=== PATIENT | female | born 1980 | race Hispanic/Latino ===

== ENCOUNTER 2020-03-15 07:46 | Outpatient (CLI) | payer MEDICARE, OTHER ==
[2020-03-15 14:29] LABS: Hemoglobin 13.5 g/dL (12.0-16.0); Mean Corpuscular HGB CONC 32.9 g/dL (32.0-36.0); Mean Corpuscular Hemoglobin 29.1 pg (27.0-31.0); Mean Corpuscular Volume 88.2 fL (78.0-98.0); Mean Platelet Volume 9.3 fL (7.4-10.4); Platelet Count 241 thou/uL (130-400); Red Blood Cell (RBC) Count 4.65 mill/uL (4.20-5.40); White Blood Cell (WBC) Count 12.7 thou/uL (4.8-10.8)
[2020-03-15 14:30] LABS: INR-International Normal Ratio 1.1; PTT 27.4 sec (22.9-36.1); Prothrombin Time 13.7 sec (12.0-14.7)
[2020-03-16 14:55] LABS: SARS-CoV-2 MS2 Positive; SARS-CoV-2 N Gene Negative; SARS-CoV-2 S Gene Negative; SARS-CoV-2 by NAA Not Detected (NotDetected); SARS-CoV-2 orf1ab Negative
== END 2020-03-15 07:47 | disposition home or self-care (01) ==
LOC: LABBT 07:46
PROVIDERS: ATTEND Neurological Surgery
DX: Z01.812 Encounter for preprocedural laboratory examination (principal); Z20.828 Contact with and (suspected) exposure to other viral communicable diseases; M50.023 Cervical disc disorder at C6-C7 level with myelopathy
CPT/HCPCS: 85027; 85610; 85730; U0003; 87635

== ENCOUNTER 2020-03-18 10:29 | Day surgery (SDC) | payer MEDICARE, MEDICAID ==
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
[~2020-03-18 10:29] MED LIST: Dexamethasone 20 MG/5 ML VIAL ONE; Glycopyrrolate 0.2 MG/ML 5 ML SYRINGE ONE; Lidocaine 1% PF 5 ML VIAL ONE; Ondansetron PF 4 MG/2 ML Vial ONE; PHENYLEPHRINE-NS 100 MCG/ML 10 ML SYRINGE ONE; PROPOFOL 200 MG/20 ML VIAL ONE; Rocuronium Bromide 10 MG/ML (10ML VIAL) ONE
[2020-03-18 11:41] LABS: Anion Gap 13 mmol/L (10-20); BUN (Urea Nitrogen) 14 mg/dL (7.0-18.7); Calc. Creatinine Clearance 0 mL/min (70-130); Calcium 9.3 mg/dL (7.8-10.44); Carbon Dioxide 25 mmol/L (22-29); Chloride 103 mmol/L (98-107); Estimated GFR-MDRD 84; Glucose 300 mg/dL (70-105); Potassium 4.4 mmol/L (3.5-5.1); Sodium 137 mmol/L (136-145)
[2020-03-18] MEDS ORDERED: Insulin Regular 300 UNITS/3 ML VIAL ONE (11:58)
[2020-03-18] MEDS ORDERED: Thrombin 5000 UNITS/5 ML VIAL ONE (11:58)
[2020-03-18] MEDS ORDERED: Fentanyl 100 MCG/2 ML VIAL ONE ×4 (12:22→16:32)
[2020-03-18] MEDS ORDERED: Midazolam HCl 2 mg/2 ml Vial ONE (12:27)
[2020-03-18] MEDS ORDERED: HYDROcodone/Acetaminophen 5/325 mg Tablet ONE (16:42)
[2020-03-18] MEDS ORDERED: Morphine 2 MG/ML VIAL ONE (18:08)
--- NOTE | 2020-03-19 09:11 | OP ---
DATE OF PROCEDURE: 03/18/2020 DATA OPERATIONS DIRECTOR: Colby Mcfadden PA-C PREOPERATIVE INDICATION: Treat pain and prevent neurological deterioration. PREOPERATIVE DIAGNOSES: Cervical intervertebral disk disease at C6-C7 with cord compression, early myelopathy, and radicular irritation. POSTOPERATIVE DIAGNOSES: Cervical intervertebral disk disease at C6-C7 with cord compression, early myelopathy, and radicular irritation. PROCEDURES PERFORMED: 1. Anterior cervical diskectomy, C6-C7. 2. Intervertebral arthrodesis, C6-C7. 3. Placement of intervertebral biomechanical device, C6-C7 (separate from plate). 4. Anterior cervical plating, C6-C7 (separate from interbody device). 5. Local morselized autograft, morselized allograft. 6. Operating microscope. PREOPERATIVE MEDICATIONS: Ancef 2 g IV. DRAIN NUMBER: Zero. DRAIN TYPE: None. DESCRIPTION OF PROCEDURE: The patient was brought to the operating room. General endotracheal anesthesia was induced. The patient's body habitus made positioning extremely difficult given her large skin folds behind her shoulders. We used a lateral fluoro radiograph to help us plan our incision. The right side of the neck was sterilely prepped and draped. We opened with a 10 blade knife and we controlled bleeding with bipolar cautery. We dissected sharply to the platysma. We cut this muscle in line with our incision. We continued a very difficult dissection given the large neck diameter all the way down to the prevertebral space. We moved medial to the sternocleidomastoid and lateral to the trachea and esophagus. We had to place a marker at C3-C4 and took a lateral fluoro radiograph. We counted down three interspaces from there and identified the C6-C7 interspace. We then elevated the longus colli muscles off the anterior surface of C6 and C7, and carefully placed a very long self-retaining retractor beneath them. We placed distraction pins at C6 and C7, and distracted across the intervening interspace. We incised the interspace with a 15 blade knife and we removed disk contents using curettes and rongeurs. The operative microscope was brought into the field. Under microscopic magnification and using microsurgical techniques, along with long microsurgical instruments, we carefully removed the remainder of the intervertebral disk. We accessed the ventral epidural space with a micro curette. We removed posterior longitudinal ligament and posterior osteophytes across the entire interspace from one neural foramen all the way to the other. Large ventral epidural veins were encountered over in the corners, and these were managed with very gentle bipolar cautery and small pledgets of Gelfoam with thrombin. We prepared the endplates for grafting with curettes and measured the height of the interspace to 8 mm. This was done with a bone rasp. We brought an 8 mm PEEK intervertebral graft into the field. With the osteophytes removed during our decompression, we removed soft tissue, and then we morcellized the bone and added it into demineralized bone matrix to form our fusion substrate. The substrate was packed in the center of the PEEK device and that device was advanced into the interspace under radiographic guidance to the appropriate depth. Device was separate from the plate. We removed the operative microscope and took out the distraction pins. A 16-mm anterior cervical plate was brought into the field. We drilled weight loss [facility] manager holes through the plate into the vertebral bodies and affixed the plate using 16 mm screws. Variable angle screws were used at C6 and fixed angle screws at C7. We engaged the locking mechanism over each of the 4 screws. AP and lateral fluoro radiographs confirmed adequate positioning of our instrumentation. We irrigated copiously with bacitracin irrigation. The dissection, the diskectomy, the placement of instrumentation were all severely complicated by the body habitus, which made the case much longer than average. We closed the wound in anatomical layers and we applied a sterile dressing. This was a clean case, no contamination. Job ID: [id number]
== END 2020-03-18 18:45 | disposition home or self-care (01) ==
LOC: SDC 10:29
PROVIDERS: ATTEND Neurological Surgery
PROC: 0RG10A0 Fusion of Cervical Vertebral Joint with Interbody Fusion Device, Anterior Approach, Anterior Column, Open Approach (ICD-10-PCS; principal; 2020-03-18)
PROC: 0RT30ZZ Resection of Cervical Vertebral Disc, Open Approach (ICD-10-PCS; 2020-03-18)
DX: M50.023 Cervical disc disorder at C6-C7 level with myelopathy (principal); F41.9 Anxiety disorder, unspecified; F31.9 Bipolar disorder, unspecified; E11.9 Type 2 diabetes mellitus without complications; G40.909 Epilepsy, unspecified, not intractable, without status epilepticus; I11.9 Hypertensive heart disease without heart failure; E78.00 Pure hypercholesterolemia, unspecified; Z79.4 Long term (current) use of insulin; Z79.899 Other long term (current) drug therapy; Z88.2 Allergy status to sulfonamides; Z88.6 Allergy status to analgesic agent; Z88.8 Allergy status to other drugs, medicaments and biological substances
CPT/HCPCS: 20930; 20936; 22551; 22853; 76000; 80048; 82962; J2270; 36415; 36416; C1713; C1776; J0690; J1100; J1815; J2250; J2405; J2704; J3010; J3490

== ENCOUNTER 2022-03-21 13:00 | Outpatient (CLI) | payer MEDICARE, MEDICAID | END 2022-03-21 13:01 | disposition home or self-care (01) | LOC: SCSMRI 13:00 | PROVIDERS: ATTEND Neurological Surgery | DX: M43.16 Spondylolisthesis, lumbar region (principal); M47.816 Spondylosis without myelopathy or radiculopathy, lumbar region; M48.061 Spinal stenosis, lumbar region without neurogenic claudication; M48.07 Spinal stenosis, lumbosacral region; M51.36 Other intervertebral disc degeneration, lumbar region | CPT/HCPCS: 72148 ==

== ENCOUNTER 2022-04-27 13:28 | Outpatient (CLI) | payer MEDICARE, MEDICAID ==
[2022-04-27 14:51] LABS: Hemoglobin 12.9 g/dL (12.0-15.5); Mean Corpuscular HGB CONC 34.3 g/dL (32.0-36.0); Mean Corpuscular Volume 90.4 fl (81.6-98.3); Mean Platelet Volume 11.5 fl (7.4-10.4); Platelet Count 307 10x3/uL (150-450); RBC Distribution Width 12.2 % (11.5-14.5); Red Blood Cell (RBC) Count 4.16 10x6/uL (3.90-5.03); White Blood Cell (WBC) Count 10.6 10x3/uL (3.5-10.5)
[2022-04-27 15:15] LABS: Anion Gap 13 mmol/L (10-20); BUN (Urea Nitrogen) 18 mg/dL (7.0-18.7); Calc. Creatinine Clearance 0 mL/min (70-130); Calcium 9.5 mg/dL (7.8-10.44); Carbon Dioxide 28 mmol/L (22-29); Chloride 105 mmol/L (98-107); Estimated GFR 89; Glucose 109 mg/dL (70-105); Potassium 4.9 mmol/L (3.5-5.1); Sodium 141 mmol/L (136-145)
[2022-04-27 15:21] LABS: Prothrombin Time 10.9 sec (9.5-12.1)
[2022-04-27 15:51] LABS: BHCG - Serum Negative (NEGATIVE); Pregs Control Background? CLEAR/WHITE (CLR/WHITE); Pregs Control Bar Appear? YES (CONTROL BAR)
== END 2022-04-27 13:29 | disposition home or self-care (01) ==
LOC: LABBT 13:28
PROVIDERS: ATTEND Neurological Surgery
DX: Z01.812 Encounter for preprocedural laboratory examination (principal); M43.16 Spondylolisthesis, lumbar region; M48.062 Spinal stenosis, lumbar region with neurogenic claudication
CPT/HCPCS: 80048; 84703; 85027; 85610; 85730

== ENCOUNTER 2022-05-02 05:42 | Inpatient (IN) | payer MEDICARE, MEDICAID ==
[2022-05-01 13:45] VITALS: BMI 33.9
[2022-05-02] MEDS ORDERED: Bupivacaine HCl 0.5%/Epinephrine 1:200,000/PF 30 ml Vial ONE (06:23)
[2022-05-02] MEDS ORDERED: Neomycin-Polymyxin 1 ML AMP ONE (06:23)
[2022-05-02] MEDS ORDERED: Thrombin 5000 UNITS/5 ML VIAL ONE (06:23)
[2022-05-02] MEDS ORDERED: Midazolam HCl 2 mg/2 ml Vial ONE (06:39)
[2022-05-02] MEDS ORDERED: fentaNYL PF 100 MCG/2 ML SYRINGE ONE (06:43)
[2022-05-02] MEDS ORDERED: Dexmedetomidine 200 MCG/2 ML VIAL ONE (06:43)
[2022-05-02] MEDS ORDERED: Sodium Chloride 0.9% 100 ML ONE ×2 (06:49→15:02)
[2022-05-02] MEDS ORDERED: CEFAZOLIN 2 GM VIAL ONE ×2 (06:49→15:02)
[2022-05-02] MEDS ORDERED: Ondansetron PF 4 MG/2 ML Vial IVP PRN (06:55)
[2022-05-02] MEDS ORDERED: diphenhydrAMINE 50 MG/ML VIAL IVP PRN (06:55)
[2022-05-02] MEDS ORDERED: Mag-Al 1200 mg/1200 mg/30 ML UDCUP PO PRN (06:55)
[2022-05-02] MEDS ORDERED: Morphine 2 MG/ML VIAL SLOW IVP PRN (06:55)
[2022-05-02] MEDS ORDERED: HYDROcodone/Acetaminophen 7.5/325 mg Tablet PO PRN (06:55)
[2022-05-02] MEDS ORDERED: Acetaminophen/Codeine 30-300mg Tablet PO PRN (06:55)
[2022-05-02] MEDS ORDERED: Milk Of Magnesia 30 ML UDCUP PO PRN (06:55)
[2022-05-02] MEDS ORDERED: Bisacodyl 10 MG SUPP PR PRN (06:55)
[2022-05-02] MEDS ORDERED: CEFAZOLIN 2 GM in Sodium Chloride 0.9% 100 ML IVPB SCH (07:00)
[2022-05-02] MEDS ORDERED: PHENYLEPHRINE-NS 100 MCG/ML 10 ML SYRINGE ONE (07:18)
[2022-05-02] MEDS ORDERED: PROPOFOL 200 MG/20 ML VIAL ONE (07:18)
[2022-05-02] MEDS ORDERED: Ondansetron PF 4 MG/2 ML Vial ONE (07:18)
[2022-05-02] MEDS ORDERED: ePHEDrine 50 MG/ML VIAL ONE (07:18)
[2022-05-02] MEDS ORDERED: NEOSTIGMINE 3 MG/3 ML SYR 3 MG/3 ML SYRINGE ONE (07:18)
[2022-05-02] MEDS ORDERED: Rocuronium Bromide 10 MG/ML (10ML VIAL) ONE (07:18)
[2022-05-02] MEDS ORDERED: Vecuronium 10 MG VIAL ONE (07:18)
[2022-05-02] MEDS ORDERED: Glycopyrrolate 0.2 MG/ML 5 ML SYRINGE ONE (07:18)
[2022-05-02] MEDS ORDERED: Dexamethasone 20 MG/5 ML VIAL ONE (07:18)
[2022-05-02] MEDS ORDERED: Bacitracin Zinc Ointment 30 gm TUBE ONE (07:38)
[2022-05-02] MEDS ORDERED: Phenylephrine 10 MG/ML VIAL ONE (09:18)
[2022-05-02] MEDS ORDERED: HYDROmorphone 2 MG/ML VIAL ONE (12:38)
[2022-05-02] MEDS ORDERED: HYDROmorphone 2 MG/ML VIAL SLOW IVP PRN (13:05)
[2022-05-02] MEDS ORDERED: Morphine Sulfate 2 MG/ML SYRINGE SLOW IVP PRN (13:05)
[2022-05-02] MEDS ORDERED: Promethazine HCl 25 MG/ML VIAL IM PRN (13:05)
[2022-05-02] MEDS ORDERED: PACU-Morphine 4MG/ML VIAL SLOW IVP PRN (13:05)
[2022-05-02] MEDS ORDERED: Ondansetron HCl/PF 4 MG/2 ML Vial IVP PRN (13:05)
[2022-05-02] MEDS ORDERED: Promethazine HCl 25 MG/ML VIAL IVPB PRN (13:05)
[2022-05-02] MEDS ORDERED: FENTANYL 50 MCG/ML 1 ML VIAL ONE ×3 (13:37→16:36)
[2022-05-02] MEDS ORDERED: Promethazine HCl 25 MG/ML VIAL ONE (13:37)
[2022-05-02] MEDS: Sodium Chloride 0.9% 1,000 ML IV SCH ×2 (14:05→19:19)
[2022-05-02] MEDS ORDERED: HYDROmorphone 0.5 MG/0.5 ML SYRINGE ONE (14:50)
[2022-05-02] MEDS: CEFAZOLIN 2 GM in Sodium Chloride 0.9% 100 ML IVPB SCH ×2 (15:05→21:36)
[2022-05-02] MEDS ORDERED: tiZANidine HCl 4 MG TAB ONE (15:11)
[2022-05-02] MEDS: tiZANidine HCl 4 MG TAB PO PRN ×2 (15:13→18:26)
[2022-05-02] MEDS: HYDROcodone/Acetaminophen 10/325 mg Tablet PO PRN (17:33)
[2022-05-02] MEDS ORDERED: HumaLOG 300 UNITS/3 ML VIAL SC PRN ×2 (18:01)
[2022-05-02] MEDS ORDERED: Dextrose 5% in Water 1,000 ML IV PRN (18:01)
[2022-05-02] MEDS ORDERED: Dextrose 50% Abboject 50 ML SYRINGE SLOW IVP PRN (18:01)
[2022-05-02 18:22] LABS: SARS-CoV-2 NAA Rapid Test Not Detected (NotDetected)
[2022-05-02] MEDS ORDERED: Propranolol HCl 20 MG TAB PO PRN (18:35)
[2022-05-02] MEDS: Ketotifen Fumarate 0.025% Ophth Soln 5 ml Bottle EA EYE SCH (21:36)
[2022-05-02] MEDS: Rosuvastatin 20 MG TAB PO SCH (21:36)
[2022-05-02] MEDS: Morphine 4 MG/ML VIAL SLOW IVP PRN ×2 (21:37→22:54)
[2022-05-02] MEDS: Acetaminophen 325 MG TAB PO PRN (23:17)
[2022-05-02] MEDS ORDERED: tiZANidine HCl 4 MG TAB PO SCH (23:59)
[2022-05-03] MEDS: Morphine 4 MG/ML VIAL SLOW IVP PRN ×13 (00:15→23:37)
[2022-05-03] MEDS ORDERED: Propranolol HCl 20 MG TAB PO PRN (01:10)
[2022-05-03] MEDS: tiZANidine HCl 4 MG TAB PO PRN ×3 (02:20→16:40)
[2022-05-03 05:43] LABS: #Lymphocytes 2.1 thou/uL (1.20-3.40); #Monocytes 1.3 thou/uL (0.11-0.59); #Neutrophils 10.3 thou/uL (1.40-6.50); %Basophils 0.1 % (0.0-1.0); %Eosinophils 0.1 % (0.0-10.0); %Lymphocytes 15.3 % (21.0-51.0); %Monocytes 9.4 % (0.0-10.0); %Neutrophils 75.2 % (42.0-75.0); Hemoglobin 9.9 g/dL (12.0-16.0); Mean Corpuscular HGB CONC 34.4 g/dL (32.0-36.0); Mean Corpuscular Hemoglobin 32.3 pg (27.0-31.0); Mean Corpuscular Volume 93.7 fl (78.0-98.0); Mean Platelet Volume 8.7 fL (7.4-10.4); Platelet Count 199 10x3/uL (130-400); RBC Distribution Width 11.6 % (11.5-14.5); Red Blood Cell (RBC) Count 3.06 mill/uL (4.20-5.40); White Blood Cell (WBC) Count 13.7 10x3/uL (4.8-10.8)
[2022-05-03 05:55] LABS: Anion Gap 9 mmol/L (10-20); BUN (Urea Nitrogen) 15 mg/dL (7.0-18.7); Calc. Creatinine Clearance 151 mL/min (70-130); Calcium 8.6 mg/dL (7.8-10.44); Carbon Dioxide 26 mmol/L (22-29); Chloride 104 mmol/L (98-107); Estimated GFR 104; Glucose 143 mg/dL (70-105); Potassium 4.1 mmol/L (3.5-5.1); Sodium 135 mmol/L (136-145)
[2022-05-03] MEDS: Ketotifen Fumarate 0.025% Ophth Soln 5 ml Bottle EA EYE SCH ×2 (07:56→21:11)
[2022-05-03] MEDS: CEFAZOLIN 2 GM in Sodium Chloride 0.9% 100 ML IVPB SCH ×3 (07:57→23:38)
[2022-05-03] MEDS: Insulin Glargine 30 UNITS/0.3 ML VIAL SC SCH (07:57)
[2022-05-03] MEDS: Fenofibrate Nanocrystallized 145 MG TAB PO SCH (07:57)
[2022-05-03] MEDS: Escitalopram Oxalate 20 mg Tablet PO SCH (08:35)
[2022-05-03] MEDS ORDERED: Spironolactone 100 MG TAB PO SCH (09:00)
[2022-05-03] MEDS: Sodium Chloride 0.9% 1,000 ML IV SCH ×2 (09:07→18:53)
[2022-05-03] MEDS: Acetaminophen 325 MG TAB PO PRN (16:56)
[2022-05-03] MEDS: Carvedilol 6.25 MG TAB PO SCH (20:58)
[2022-05-03] MEDS: Rosuvastatin 20 MG TAB PO SCH (21:05)
[2022-05-04] MEDS: tiZANidine HCl 4 MG TAB PO PRN ×2 (00:22→07:47)
[2022-05-04] MEDS: Morphine 4 MG/ML VIAL SLOW IVP PRN ×3 (02:31→09:59)
[2022-05-04] MEDS: Acetaminophen 325 MG TAB PO PRN (04:19)
[2022-05-04] MEDS: HYDROcodone/Acetaminophen 10/325 mg Tablet PO PRN ×2 (06:01→14:46)
[2022-05-04] MEDS: CEFAZOLIN 2 GM in Sodium Chloride 0.9% 100 ML IVPB SCH (07:46)
[2022-05-04] MEDS: Insulin Glargine 30 UNITS/0.3 ML VIAL SC SCH (07:46)
[2022-05-04] MEDS: Escitalopram Oxalate 20 mg Tablet PO SCH (07:47)
[2022-05-04] MEDS: Fenofibrate Nanocrystallized 145 MG TAB PO SCH (07:47)
[2022-05-04] MEDS: Ketotifen Fumarate 0.025% Ophth Soln 5 ml Bottle EA EYE SCH (07:48)
[2022-05-04] MEDS: Carvedilol 6.25 MG TAB PO SCH (07:48)
[2022-05-04] MEDS ORDERED: Spironolactone 100 MG TAB PO SCH (08:00)
[2022-05-04] MEDS ORDERED: Lisinopril 5 MG TAB PO SCH (09:00)
[2022-05-04 10:40] LABS: Bilirubin Negative (Negative); Blood, Urine Negative (Negative); CAUTI Indications for Culture Fever or rigors; Clarity Clear (Clear); Glucose, Urine (Dipstick) Normal (Negative); Ketone, Urine 10 mg/dL (Negative); Leukocyte 25 Leu/uL (Negative); Nitrite Negative (Negative); Protein, Urine (Dipstick) 20 mg/dL (Neg-Trace); RBC/HPF 0-3 HPF (0-3); Specific Gravity, Urine 1.029 (1.002-1.036); Urobilinogen Normal mg/dL (Less than 2)
[2022-05-04 10:41] LABS: Bacteria/HPF Rare-Few HPF (None Seen)
[2022-05-04 10:42] LABS: Urine Culture Reflex No No
[2022-05-04 12:35] VITALS: TEMP 98.4
[2022-05-04 13:58] VITALS: BP 98/65
[2022-05-04] MEDS: Sodium Chloride 0.9% 1,000 ML IV SCH (14:05)
[2022-05-05] MEDS ORDERED: SEMAGLUTIDE 2 MG/0.75 ML SC SCH (09:00)
== END 2022-05-04 16:06 | disposition home or self-care (01) | DRG 454 ==
LOC: SDC 05:42 → MSONC 16:46 → OBSVTOIN 05-04 06:38
PROVIDERS: ADMIT Neurological Surgery; ATTEND Neurological Surgery
PROC: 0SG00AJ Fusion of Lumbar Vertebral Joint with Interbody Fusion Device, Posterior Approach, Anterior Column, Open Approach (ICD-10-PCS; principal; 2022-05-02)
PROC: 0SG0071 Fusion of Lumbar Vertebral Joint with Autologous Tissue Substitute, Posterior Approach, Posterior Column, Open Approach (ICD-10-PCS; 2022-05-02)
PROC: 0SB20ZZ Excision of Lumbar Vertebral Disc, Open Approach (ICD-10-PCS; 2022-05-02)
PROC: 01NB0ZZ Release Lumbar Nerve, Open Approach (ICD-10-PCS; 2022-05-02)
DX: M48.062 Spinal stenosis, lumbar region with neurogenic claudication (principal); I50.22 Chronic systolic (congestive) heart failure; M43.16 Spondylolisthesis, lumbar region; Z20.822 Contact with and (suspected) exposure to COVID-19; G89.29 Other chronic pain; E11.9 Type 2 diabetes mellitus without complications; F41.9 Anxiety disorder, unspecified; F32.A Depression, unspecified; Z88.6 Allergy status to analgesic agent; Z87.891 Personal history of nicotine dependence; Z98.1 Arthrodesis status; Z79.899 Other long term (current) drug therapy; Z83.3 Family history of diabetes mellitus; Z82.49 Family history of ischemic heart disease and other diseases of the circulatory system; Z90.49 Acquired absence of other specified parts of digestive tract; Z88.3 Allergy status to other anti-infective agents; Z88.2 Allergy status to sulfonamides; Z88.8 Allergy status to other drugs, medicaments and biological substances; Z79.4 Long term (current) use of insulin; Z98.890 Other specified postprocedural states; Z82.3 Family history of stroke; L98.8 Other specified disorders of the skin and subcutaneous tissue
CPT/HCPCS: 36415; 36416; 71045; 80048; 81001; 83880; 85025; 93005; 93010; 93970; C1713; C1768; C1776; C1889; J1100; J1170; J1815; J2250; J2270; J2370; J2405; J2550; J2704; J3010; J3370; J3490; U0002